=== PATIENT | male | born 1980 | race Caucasian/White ===

== ENCOUNTER 2018-11-03 18:40 | Emergency (ER) | payer SELFPAY ==
--- NOTE | 2018-11-03 19:33 | RAD ---
Radiograph left fifth digit 3 views: HISTORY: Injury FINDINGS: Tiny calcific density in soft tissues close to the dorsal aspect of the head of the third middle phal anx. No fracture lucency identified. No dislocation. IMPRESSION: Possible tiny avulsion fracture at fifth distal interphalangeal joint
[2018-11-03] MEDS ORDERED: Bupivacaine 0.5% 10 ML VIAL ONE (20:23)
[2018-11-03] MEDS ORDERED: CEFAZOLIN 1 GM VIAL ONE (20:25)
[2018-11-03] MEDS ORDERED: Bacitracin Zinc 1 Packet ONE (20:53)
== END 2018-11-03 21:10 | disposition home or self-care (01) ==
LOC: ERS 18:40
DX: S62.637A Displaced fracture of distal phalanx of left little finger, initial encounter for closed fracture (principal); W20.8XXA Other cause of strike by thrown, projected or falling object, initial encounter; Y92.69 Other specified industrial and construction area as the place of occurrence of the external cause
CPT/HCPCS: 12001; J0690; J3490

== ENCOUNTER 2018-12-07 05:23 | Outpatient (CLI) | payer OTHER ==
[2018-12-07 10:53] LABS: #Eosinphils 0.2 thou/uL (0.0-0.7); #Lymphocytes 2.4 thou/uL (1.20-3.40); #Monocytes 0.5 thou/uL (0.11-0.59); #Neutrophils 4.1 thou/uL (1.40-6.50); %Basophils 0.4 % (0.0-1.0); %Lymphocytes 33.4 % (21.0-51.0); %Monocytes 6.9 % (0.0-10.0); %Neutrophils 56.3 % (42.0-75.0); Hemoglobin 16.5 g/dL (14.0-18.0); Mean Corpuscular HGB CONC 34.9 g/dL (32.0-36.0); Mean Corpuscular Volume 88.9 fL (78.0-98.0); Mean Platelet Volume 7.4 fL (7.4-10.4); Platelet Count 198 thou/uL (130-400); RBC Distribution Width 11.7 % (11.5-14.5); Red Blood Cell (RBC) Count 5.31 mill/uL (4.70-6.10); White Blood Cell (WBC) Count 7.3 thou/uL (4.8-10.8)
== END 2018-12-07 05:24 | disposition home or self-care (01) ==
LOC: LABBT 05:23
PROVIDERS: ATTEND Orthopaedic Surgery Hand Surgery
DX: Z01.812 Encounter for preprocedural laboratory examination (principal); S62.607D Fracture of unspecified phalanx of left little finger, subsequent encounter for fracture with routine healing
CPT/HCPCS: 85025

== ENCOUNTER 2018-12-09 07:57 | Day surgery (SDC) | payer OTHER ==
[2018-12-07 09:53] VITALS: BMI 31.6
[2018-12-09] MEDS ORDERED: Fentanyl 100 MCG/2 ML VIAL ONE ×2 (09:36→10:23)
[2018-12-09] MEDS ORDERED: Midazolam HCl 2 mg/2 ml Vial ONE (09:36)
[2018-12-09] MEDS ORDERED: Bacitracin Zinc Ointment 30 gm TUBE ONE (09:37)
[2018-12-09] MEDS ORDERED: Bupivacaine PF 0.5% 30 ML VIAL ONE (10:08)
[2018-12-09] MEDS ORDERED: Ketorolac Tromethamine 30 MG/ML VIAL ONE ×2 (11:49)
--- NOTE | 2018-12-09 15:26 | RAD ---
XR Fluoro Per Hour Portable History: [ORIF left finger] Comparison: Radiograph 11/03/2018 Findings: Interval placement of pins to the distal phalangeal joint of the small finger. There is pin placement of the fifth middle phalanx head. Impression: Fluoroscopy for surgical use.
--- NOTE | 2018-12-12 10:59 | OP ---
DATE OF PROCEDURE: 12/09/2018 PREOPERATIVE DIAGNOSES: 1. Displaced radial aspect of middle phalanx. 2. Extensor tendon rupture, zone 2 stretch. PROCEDURES PERFORMED: 1. Application of short-arm splint. 2. Arthrotomy to distal interphalangeal joint. 3. C-arm supervision. 4. Open reduction and internal fixation of the radial middle phalanx condyle fracture. 5. Open extensor tendon tenotomy. 6. Extensor tendon repair, zone 1. FINDINGS: Displaced fracture rotated 40% involving the joint of the middle phalanx, middle phalanx neck fracture, and an incomplete slightly distal to the joint, zone 1 extensor mechanism. Open reduction and internal fixation as listed above of radial middle phalanx condyle distally and the open extensor tendon tenotomy with extensor tendon repair slightly distal as listed above. ESTIMATED BLOOD LOSS: 10 mL. TOURNIQUET TIME: 45 minutes. DESCRIPTION OF PROCEDURE: After successful general LMA technique, the limb was prepped and draped. The patient had time-out done appropriately. Left small finger identified. C-arm brought to the field to confirm the configuration of the fractures. We then performed an arthrotomy over the distal interphalangeal joint dorsally with a lazy hockey-stick incision, carried through skin and subcutaneous tissue, where it was easy to find the fracture involving the intraarticular radial neck of the distal middle phalanx by making an extensor tendon tenotomy where there was obvious defect. We then removed 1 mm of tendon which was very much stretched, visualized the rotated 40% radial condyle fracture of the middle phalanx distally, debrided this and then placed it back. We then held it with multiple small 0.3 K-wires with no wires exposing the joint. We irrigated the area. We then passed a K-wire in slight dorsiflexion over the distal phalanx across the mid distal interphalangeal joint and into the middle phalanx on the ulnar side of the condyle, so we did not violate the repair. Then, we repaired with a buried 4-0 Prolene via extensor tendon that already had undergone a tenotomy to allow exposure and give better visualization. The tourniquet was deflated. Hemostasis was obtained. We then closed the wound with interrupted 5-0 nylon in a simple pattern, the K-wire was cut below the skin that held the PIP joint fixed and the patient left the operating room without evidence of anesthetic or operative complication in a short-arm splint. Job ID: [id number]
== END 2018-12-09 13:26 | disposition home or self-care (01) ==
LOC: SDC 07:57
PROVIDERS: ATTEND Orthopaedic Surgery Hand Surgery
PROC: 0LS80ZZ Reposition Left Hand Tendon, Open Approach (ICD-10-PCS; principal; 2018-12-09)
PROC: 0PSV0ZZ Reposition Left Finger Phalanx, Open Approach (ICD-10-PCS; principal; 2018-12-09)
DX: S62.627A Displaced fracture of middle phalanx of left little finger, initial encounter for closed fracture (principal); S66.307A Unspecified injury of extensor muscle, fascia and tendon of left little finger at wrist and hand level, initial encounter; M20.012 Mallet finger of left finger(s); I10 Essential (primary) hypertension
CPT/HCPCS: 76000; J0690; J1885; J2250; J3010; S0020

== ENCOUNTER 2019-02-21 12:39 | Outpatient (CLI) | payer OTHER | END 2019-02-21 12:40 | disposition home or self-care (01) | LOC: LABBT 12:39 | PROVIDERS: ATTEND Orthopaedic Surgery Hand Surgery | DX: Z01.818 Encounter for other preprocedural examination (principal); T84.84XA Pain due to internal orthopedic prosthetic devices, implants and grafts, initial encounter | CPT/HCPCS: 93005; 93010 ==